=== PATIENT | female | born 1990 | race African-American/Black ===

== ENCOUNTER 2017-10-18 14:45 | Emergency (ER) | payer SELFPAY ==
[~2017-10-18] VITALS: Ht 154.9 cm; Wt 60.0 kg
[~2017-10-18 14:45] MED LIST: AMOX500T PO; HYDR-3533 PO
[2017-10-18 14:50] VITALS: BP 114/60; PULSE 80; RESP 16; TEMP 97.9; O2SAT 99
== END 2017-10-18 18:40 | disposition left against medical advice (07) ==
LOC: NED 14:45
DX: R19.8 Other specified symptoms and signs involving the digestive system and abdomen (principal)
CPT/HCPCS: 99281